=== PATIENT | female | born 1985 | race Caucasian/White ===

== ENCOUNTER 2024-09-12 19:12 | Emergency (ER) | payer BC, SELFPAY ==
[2024-09-12 19:12] VITALS: BP 157/109; PULSE 81; RESP 16; TEMP 36.8; O2SAT 99; BMI 39.2
--- NOTE | 2024-09-12 21:32 | CT_ITS ---
PROCEDURE: ABDOMEN/PELVIS WITHOUT CONT REASON FOR EXAM: Distention. Pain. TECHNIQUE: Abdomen and pelvis CT without intravenous contrast. COMPARISON: None. FINDINGS: Noncontrast technique limits evaluation of the abdominal and pelvic viscera. Lung bases are clear. The nonenhanced liver, spleen, pancreas, biliary system, and adrenal glands are unremarkable within the limits of a noncontrast exam. Gallbladder is surgically absent. Abdominal aorta demonstrates a normal caliber. No renal or ureteral stones are present bilaterally. No hydronephrosis or hydroureter is identified bilaterally. Urinary bladder is underdistended. No colonic obstruction or pericolonic inflammatory changes are present. Appendix is surgically absent. Small bowel demonstrates a normal caliber. There is hernia mesh material along the umbilical region. Uterus is surgically absent. There is a left ovarian cyst measuring 3.4 cm. No free air or free fluid is identified. Evaluation of the osseous structures demonstrates no acute findings. CT/Abdomen/Pelvis without Cont IMPRESSION: 1. No acute inflammatory changes, obstructive uropathy, free air, or free fluid . 2. Postsurgical changes as above. 3. Left ovarian cyst measuring 3.4 cm. One or more dose reduction techniques were used (e.g., Automated exposure contr ol, adjustment of the mA and/or kV according to patient size, use of iterative reconstruction technique). Reading Location: [facility]
--- NOTE | 2024-09-12 21:34 | ED.VIS.GI ---
HPI HPI - GI History of Present Illness Chief Complaint: Abd Pain Informant: patient Narrative Narrative: Worsening left side abdominal pain since yesterday. Nausea without vomiting. Had bowel movement early this morning diarrhea. Bloating. Partial hysterectomy in the past. No urinary symptoms. No fevers reports chills. Reports feels like I am . No history of bowel obstructions. No history of kidney stones. Pain has been constant. Prior similar symptoms: No PFSH PFSH Home Medications ?Medication ?Instructions ?Recorded ?Last Taken ?Type ondansetron 4 mg disintegrating 4 mg PO Q8H PRN PRN Nausea #10 tabs 09/12/24 Unknown Rx tablet Allergy/AdvReac Type Severity Reaction Status Date / Time No Known Allergies Allergy Verified 09/12/24 19:14 Social History Smoking Status: Current every day smoker tobacco type: cigarettes ROS ROS ED Constitutional Constitutional ED: Reports chills; Denies fever(s) or sweats ENT ENT ED: Denies sore throat Cardiovascular Cardiovascular: Denies chest pain, leg edema, palpitations or racing heartbeat Respiratory/Chest Respiratory/Chest: Denies cough, dyspnea or dyspnea on exertion Gastrointestinal Gastrointestinal: Reports abdominal pain and nausea; Denies diarrhea or vomiting Genitourinary Genitourinary ED: Denies dysuria, hematuria or urinary frequency Musculoskeletal Musculoskeletal: Denies back pain, extremity pain or neck pain Integumentary Denies rash or wounds Neurologic Neurologic: Denies headache(s), paresthesias or weakness EXAM Physical Exam Const Vital Signs: 09/12/24 19:12 09/12/24 22:29 09/12/24 23:08 Temperature 98.2 F 97.8 F Temperature Source Oral Pulse Rate 81 67 69 Respiratory Rate 16 20 H Blood Pressure 157/109 H 167/95 H 136/78 H Blood Pressure Mean 125 119 97 Pulse Ox 99 97 99 Oxygen Delivery Method Room Air Room Air Positive well nourished and well developed General Appearance ED: well developed and NAD HEENT Reports moist mucous membranes normocephalic and atraumatic Eyes General Eye ED: Yes normal appearance of both eyes Neck full ROM Chest Wall Chest: Negative for tenderness Resp normal respiratory effort and normal air movement Effort and Inspection: symmetric chest movement; Negative for respiratory distress Cardio regular rate, regular rhythm and no murmurs Peripheral Pulses: pulses 2+ throughout GI GI Narrative: Tender palpation left abdomen. Negative Baires's or McBurney's. Palpation: Negative for guarding or rebound tenderness present Extremity normal to inspection General Extremety ED: Negative for edema or tenderness General Extremity: Negative for edema Neuro oriented x3 and no sensory deficits noted Sensorium / Orientation: awake and alert Skin no rashes or lesions noted and no wounds MDM MDM MDM Narrative Medical decision making narrative: Interventions / MDM: Differential diagnosis: Abdominal pain, left ovarian cyst Diagnosis considered but do not suspect: Kidney stone, colitis however CT negative. My EKG interpretation: N/A Imaging independently reviewed and interpreted by myself: CT abdomen pelvis: External documents reviewed: N/A Test considered but not ordered:N/A ED course: Left abdominal tenderness since yesterday. Abdominal labs ordered, fluids Zofran morphine. CT abdomen pelvis for further evaluation. 2215: Per nursing patient had redness upper arm after morphine was given. There was a small hive proximal to the IV. No lip or tongue swelling. She is given Benadryl. Her pain was improving. Her CT was performed. Urine mild occult blood. No infection. White count 12.6 hemoglobin 13.8. 2305: Lipase liver enzymes renal function normal. CT scan results no kidney stones no colitis, however notes a 3.4 cm left ovarian cyst. This is likely cause of her symptoms. No current pain. Lower suspicion for torsion. Discussed results with the patient, discussed worsening sudden pain to return to the ED for emergent ultrasounds. She is given follow-up with gynecology that is on-call. She has Motrin at home. Prescription for Zofran to her pharmacy. All questions were answered. Re-evaluation: stable Disposition discussed with patient/family/significant other: Patient Case discussed with consulting clinician: N/A This note was generated with Docin dictation software. It may contain incorrect words, spelling, and punctuation that were not noted in checking the note before signing. Lab Data Attestation: I reviewed the patient's lab results. Labs: Laboratory Results - last 24 hr 09/12/24 22:07 WBC 12.6 H RBC 4.42 Hgb 13.8 Hct 41.4 MCV 93.7 MCH 31.2 MCHC 33.3 RDW Std Deviation 47.4 H RDW Coeff of Dennis 13.7 Plt Count 276 MPV 10.3 Immature Gran % (Auto) 0.400 Neut % (Auto) 60.5 Lymph % (Auto) 31.6 [place] % (Auto) 5.6 Eos % (Auto) 1.3 Baso % (Auto) 0.6 Absolute Neuts (auto) 7.6 Absolute Lymphs (auto) 3.98 Nucleated RBC % 0 Sodium 135 L Potassium 3.5 Chloride 105 Carbon Dioxide 21.0 Anion Gap 10 BUN 7 Creatinine 0.72 Estim Creat Clear Calc 122.14 Est GFR (MDRD) Af Amer 116 Est GFR (MDRD) Non-Af 96 BUN/Creatinine Ratio 9.7 L Glucose 83 Calcium 9.5 Total Bilirubin 0.50 AST 25 ALT 27 Alkaline Phosphatase 61 Total Protein 7.7 Albumin 3.8 Globulin 3.9 Albumin/Globulin Ratio 1.0 Lipase 20 Urine Color Yellow Urine Clarity Clear Urine pH 6.0 Ur Specific [place] 1.020 Urine Protein 15 H Urine Glucose (UA) Normal Urine Ketones Negative Urine Occult Blood 10 H Urine Nitrite Negative Urine Bilirubin Negative Urine Urobilinogen Normal Ur Leukocyte Esterase Negative Urine RBC 0-5 SEEN Urine WBC 0-5 SEEN Ur Squamous Epith Cells 0-5 SEEN Urine Bacteria 1+ Urine Mucus 1+ Radiography Diagnostic Testing: Clinical Impression(s) from Imaging Studies Abdomen/Pelvis CT 09/12/24 21:32 IMPRESSION: 1. No acute inflammatory changes, obstructive uropathy, free air, or free fluid. 2. Postsurgical changes as above. 3. Left ovarian cyst measuring 3.4 cm. One or more dose reduction techniques were used (e.g., Automated exposure control, adjustment of the mA and/or kV according to patient size, use of iterative reconstruction technique). Reading Location: [facility] Discharge Plan Triage Chief Complaint: Abd Pain ED Provider: Jadiel Mejia Dx/Rx/DC Orders Clinical Impression: Abdominal pain, Cyst of left ovary Instructions: Abdominal Pain, ED Ovarian Cyst Prescriptions: New ondansetron 4 mg tablet,disintegrating 4 mg PO Q8H PRN PRN (Reason: Nausea) Qty: 10 0RF Primary Care Provider: Care Physician,No Primary Referrals: Eneida Spencer MD [Med Staff - Active Staff] - 1-2 Weeks NOT,DEFINED [Non-Staff] - Activity Restrictions/Additional Instructions: Abdominal labs normal. CT scan abdomen pelvis no kidney stones no colitis. You have a 3.4 cm left ovarian cyst that was noted. Use your ibuprofen every 6 hours as needed. Use Zofran as needed for nausea. If you develop sudden worsening pain again down in the pelvis, return to the ED for reevaluation, otherwise follow-up with gynecology. Print Language: Senegalese Disposition Disposition: Home, Self Care Discharge Date/Time: 09/12/24 23:18
[2024-09-12] MEDS: Morphine 4 MG/ML Syringe IV (22:02)
[2024-09-12] MEDS: Ondansetron 4 MG/2 ML Vial IV (22:02)
[2024-09-12] MEDS: 0.9% Normal Saline (1000mL) 1,000 ML 1000 ML IV (22:02)
[2024-09-12 22:14] LABS: Absolute Lymphocyte Count 3.98 X10^3/uL (0.83-4.51); Absolute Neutrophil Count 7.6 X10^3/uL (2.0-7.7); Basophil# 0.08 X10^3/uL; Basophil% 0.6 % (0-1); Eosinophil# 0.16 X10^3/uL; Eosinophils% 1.3 % (0-5); Hematocrit 41.4 % (37-47); Hemoglobin 13.8 g/dL (12.0-15.0); Lymphocyte # 3.98 X10^3/ul (0.83-4.51); Lymphocyte % 31.6 % (19-41); Mean Corp Hgb Conc 33.3 g/dL (32-36); Mean Corpuscular Hgb 31.2 pg (27.0-32.0); Mean Corpuscular Volume 93.7 fL (81-99); Mean Platelet Vol. 10.3 fl (6.2-12.0); Monocyte# 0.71 X10^3/uL; Monocyte% 5.6 % (0-10); NRBC Flagged by Analyzer 0 % (0-5); Neutrophil # 7.62 X10^3/uL (2.7-7.7); Neutrophil % 60.5 % (47-70); Platelet Count 276 K/mm3 (150-450); RBC Distribution Width CV 13.7 % (11.6-14.6); RBC Distribution Width SD 47.4 fl (35.1-43.9); Red Blood Count 4.42 M/mm3 (4.2-5.4); White Blood Count 12.6 K/mm3 (4.4-11.0)
[2024-09-12 22:19] LABS: Color, Urine Yellow (Yellow); Glucose, Dipstick Normal (Normal); Ketone-Dipstick Negative (Negative); Leukocyte Esterase-Dipstick Negative /ul (Negative); Nitrite-Dipstick Negative (Negative); Occult Blood-Urine 10 /ul (Negative); Protein-Dipstick 15 mg/dl (Negative); Urine Bilirubin Dipstick Negative (Negative); Urine Clarity Clear (Clear); Urine Urobilinogen Normal (Normal)
[2024-09-12] MEDS: DiphenhydrAMINE 50 MG/ML Syringe 25 MG IV (22:24)
[2024-09-12 22:29] VITALS: BP 167/95; PULSE 67; O2SAT 97
[2024-09-12 22:29] LABS: Bacteria 1+ /hpf (None Seen); Mucous, Urine 1+ /hpf (<or=2+); Red Blood Cells-Urine 0-5 SEEN /hpf (0-5); Squamous Epithelial Cells - UA 0-5 SEEN /hpf (5-10); White Blood Cells 0-5 SEEN /hpf (0-5)
--- NOTE | 2024-09-12 22:30 | ED.RN ---
iv technician alerted this RN to possible hives/ allergic reaction to pt. arm. Pt. was found to have redness that extended from her PIV in her forearm up to the right side of her neck. pt. not in any distress, states the area is not painful or itchy. Dr Mejia notified and benadryl ordered. pt. placed on monitor technician.
[2024-09-12 22:37] LABS: AST(SGOT) 25 U/L (15-37); Alanine Aminotransfer ALT/SGPT 27 U/L (13-56); Albumin, Serum 3.8 g/dL (3.2-5.0); Alkaline Phosphatase 61 U/L (45-117); Anion Gap 10 (5-15); BUN 7 mg/dL (7-18); BUN/Creat Ratio 9.7 RATIO (10-20); Calcium,Total 9.5 mg/dL (8.5-10.1); Chloride 105 mmol/L (98-107); Creatinine, Serum 0.72 mg/dL (0.55-1.02); EST Glomerular Filtration Rate 96 mL/min (>60); Est Glom Filt Rate - Afr Amer 116 mL/min (>60); Estimated Creatinine Clearance 122.14 ml/min; Globulin 3.9 g/dL (2.2-4.2); Glucose 83 mg/dL (74-106); Lipase 20 U/L (13-75); Potassium 3.5 mmol/L (3.5-5.1); Protein, Total 7.7 g/dL (6.4-8.2); Sodium Level 135 mmol/L (136-145)
[2024-09-12 23:08] VITALS: BP 136/78; PULSE 69; RESP 20; TEMP 36.6; O2SAT 99
== END 2024-09-12 23:18 | disposition home or self-care (01) ==
PROVIDERS: Emergency Provider Emergency Medicine; Visit Provider Emergency Medicine
DX: N83.202 Unspecified ovarian cyst, left side (principal); R19.7 Diarrhea, unspecified; R14.0 Abdominal distension (gaseous); R10.9 Unspecified abdominal pain; F17.210 Nicotine dependence, cigarettes, uncomplicated; Z90.710 Acquired absence of both cervix and uterus
CPT/HCPCS: 74176; 80053; 81001; 83690; 85025; 96361; 96374; 96375; 99283; J2405

== ENCOUNTER → 2024-09-23 | Outpatient (CLI) | payer BC, SELFPAY ==
[2024-09-23 12:41] LABS: Absolute Lymphocyte Count 2.67 X10^3/uL (0.83-4.51); Absolute Neutrophil Count 3.9 X10^3/uL (2.0-7.7); Basophil# 0.04 X10^3/uL; Basophil% 0.6 % (0-1); Eosinophil# 0.17 X10^3/uL; Eosinophils% 2.4 % (0-5); Hematocrit 41.5 % (37-47); Hemoglobin 13.3 g/dL (12.0-15.0); Lymphocyte # 2.67 X10^3/ul (0.83-4.51); Lymphocyte % 36.9 % (19-41); Mean Corpuscular Hgb 30.3 pg (27.0-32.0); Mean Corpuscular Volume 94.5 fL (81-99); Monocyte# 0.46 X10^3/uL; Monocyte% 6.4 % (0-10); NRBC Flagged by Analyzer 0 % (0-5); Neutrophil # 3.86 X10^3/uL (2.7-7.7); Neutrophil % 53.3 % (47-70); Platelet Count 322 K/mm3 (150-450); RBC Distribution Width CV 13.9 % (11.6-14.6); RBC Distribution Width SD 48.8 fl (35.1-43.9); Red Blood Count 4.39 M/mm3 (4.2-5.4); White Blood Count 7.2 K/mm3 (4.4-11.0)
[2024-09-23 13:16] LABS: Vitamin D,25 Hydroxy 7.4 ng/mL
[2024-09-23 13:36] LABS: ALB/GLOB Ratio 1.1 RATIO (0.9-2.4); AST(SGOT) 18 U/L (15-37); Alanine Aminotransfer ALT/SGPT 28 U/L (13-56); Albumin, Serum 3.7 g/dL (3.2-5.0); Alkaline Phosphatase 66 U/L (45-117); Anion Gap 9 (5-15); BUN 8 mg/dL (7-18); BUN/Creat Ratio 12.5 RATIO (10-20); Calcium,Total 9.1 mg/dL (8.5-10.1); Chloride 109 mmol/L (98-107); Cholesterol 183 mg/dL (200); Creatinine, Serum 0.64 mg/dL (0.55-1.02); EST Glomerular Filtration Rate 112 mL/min (>60); Est Glom Filt Rate - Afr Amer 135 mL/min (>60); Globulin 3.5 g/dL (2.2-4.2); Glucose 91 mg/dL (74-106); High Density Lipoprotein 59 mg/dL; Potassium 3.6 mmol/L (3.5-5.1); Protein, Total 7.2 g/dL (6.4-8.2); Sodium Level 139 mmol/L (136-145); Thyroid Stim Hormone (TSH) 0.923 uIU/mL (0.358-3.740); Triglycerides 142 mg/dL; Very Low Density Lipoprotein 28 mg/dL (5-40)
== END | disposition home or self-care (01) ==
LOC: MTLAB 09:54
PROVIDERS: PCP Family Medicine; Referring Provider Family Medicine; Visit Provider Family Medicine
DX: R53.83 Other fatigue (principal); Z13.220 Encounter for screening for lipoid disorders; F41.1 Generalized anxiety disorder; Z13.1 Encounter for screening for diabetes mellitus
CPT/HCPCS: 36415; 80053; 80061; 82306; 84443; 85025

== ENCOUNTER 2024-12-15 07:53 | Day surgery (SDC) | payer BC, SELFPAY ==
[2024-12-15] VITALS (10 sets, daily range): BP systolic 118–154; BP diastolic 66–98; PULSE 64–85; RESP 16–20; TEMP 36.3–36.6; O2SAT 93–98; BMI 40.1
[2024-12-15] MEDS: Lactated Ringers 1,000 ML 15 ML IV (08:35)
--- NOTE | 2024-12-15 09:07 | HP.PCM_ITS ---
History and Physical Date of Admission: 12/15/24 Date of Service: 12/02/24 MR#: [id number] Acct: [id number] Name: LUPE JIMENEZ Rep #: [id number] : 1985 Provider: Dr. Samina Dawson MD Age/Sex: 39/F Location: [facility] Status: Signed Intake Vital Signs 09/12/2518:12 12/02/2513:16 Height 5 ft 3 in 5 ft 3 in Weight: 223 lb 8 oz BMI 39.6 BP 142/91 H Blood Pressure Location Rt brachial Position Sitting Respiration 18 Pulse 74 Pulse Source Monitor Temp 97.8 F Temp Source Temporal Pulse Oximetry (%) 98 Oxygen Delivery Method room air Intake Visit Reasons: VENTRAL HERNIA Chief Complaint: Incisional hernia Case Folder Required: No Accompanied by: Unknown Is patient in pain?: No Allergies Opioids - Morphine Analogues Allergy (Intermediate, Verified 12/02/24 14:18) Hives Have you fallen in the past year?: No PFSH Medical History (Updated 12/03/24 @ 08:[address] Samina Dawson MD) GERD (gastroesophageal reflux disease) Anxiety and depression Surgical History (Updated 12/03/24 @ 08:[address] Samina Dawson MD) History of surgery on wrist History of dilatation and curettage History of hysterectomy History of umbilical hernia repair History of laparoscopic cholecystectomy Family History Grandmother Colon cancer Diabetes Heart disease Hypertension Kidney disease Social History (Updated 12/02/24 @ 14:16 by Alexandrea Mcwilliams) Smoking Status: Current every day smoker tobacco type: cigarettes alcohol intake: current alcohol intake frequency: a few times a month substance use type: does not use HPI HPI HPI: 39-year-old female presents due to epigastric hernia. Patient states that she had a cholecystectomy she thought in 2009 looks like per records it was 2008. Patient also underwent an incisional umbilical ventral hernia repair with mesh 6 months after the initial surgery. Patient did have a recent CT abdomen pelvis in the ER due to abdominal pain?09/12/2024. Patient states she is at the epigastric hernia for about a year but about 3 weeks ago did have a coughing fit which now this area is more tender and sore. Patient does currently smoke a half a pack a day. ROS General General: Yes fatigue; No weight change, appetite, colon cancer or breast cancer HEENT HEENT: No difficulty swallowing, eye injury, eye surgery, swollen glands or hoarseness Endo Endocrine: No thyroid disease, diabetes mellitus, thyroid cancer, Hair loss, heat intolerance or cold intolerance Skin Skin: No rash or changing moles Musc Musculoskeletal: No back problems, arthritis, rheumatoid arthritis, gout or joint pain Cardio Cardiovascular: No murmur, pacemaker, heart disease, atrial fibrillation, high blood pressure, heart attack, heart stent, palpitations, shortness of breath with exertion or chest pain Psych Psychiatric: Yes depression and anxiety; No hearing voices Resp Respiratory: No shortness of breath, No sleep apnea, No cough, No COPD, No asthma, No emphysema and No wheezing Gastro Gastrointestinal: No abdominal pain, No nausea or vomiting, No diarrhea, No constipation, No blood in stool, Yes acid reflux, No hemorrhoids, No ulcers, No gallbladder problem and No black,tarry stools Miguel Hematologic: No blood thinners, No blood disorders, No bleeding, No anemia and No blood clots Neuro Neurologic: No numbness and No tingling Exam Const General: cooperative, healthy appearing, comfortable and no acute distress HENMT Head: normocephalic and atraumatic Neck Neck: supple Resp Effort & Inspection: normal respiratory effort Cardio Rate: regular rate GI Inspection: non-distended Palpation: soft, hernia other (Epigastric incisional hernia-reducible, recurrent incisional hernia at umbilicus-reducible) and nontender Skin General: no rashes or lesions noted Neuro General: CN's II-XI intact bilaterally Extrem General: normal to inspection Psych Mental Status: mental status grossly normal Attitude: cooperative Assessment and Plan Assessment and Plan (1) Recurrent incisional hernia: Status: Acute Comment: At umbilicus status post mesh repair in 2008 (2) Incisional hernia: Status: Acute Comment: Epigastric Medications: Discontinued ondansetron Discontinued Reason: Order Completed 4 mg PO Q8H PRN PRN 10 tabs 0RF Nausea Plan Reviewed CT abdomen pelvis with patient as on my read there was still recurrent incisional hernia at umbilicus which was also appreciated clinically on exam. Plan to do robotic recurrent incisional and incisional hernia repair with mesh, possible removal of previous mesh. Reviewed the procedure with the patient including the risks, including but not limited to infection, bleeding, injury to the small bowel, and recurrence. All questions were answered. Did encourage smoking cessation- pt currently declined. Did let patient know that smoking with her high risk for wound infection and if the mesh were to become infected it would need to be removed. Samina Dawson M.D. Pager: [phone] [facility] [address] [place] [address], [address] [place] [address] Office: [phone] Coding Level of Care Code Off vis,new,level 3 Diagnoses Recurrent incisional hernia K43.2 Incisional hernia K43.2 Clinical Quality Measures Falls Risk Screening/Assistive Devices Have you fallen in the past year?: No 12/03/24 0901 <Electronically signed by Samina Dawson MD> Date Samina Dawson MD
--- NOTE | 2024-12-15 09:11 | PCM.PRE.AN2 ---
ASA Classification* ASA Classification ASA Classification: 2 Assessment & Plan Anesthesia* Anesthesia Assessment Anesthesia Assessment: Discussed sedation and/or anesthesia options, risks, benefits, and alternatives with patient/parents/legal guardian/POA. Questions invited. The patient/parents/legal guardian/POA seems to understand and agrees to proceed with anesthesia plan. Reviewed the physical assessment, medical history, allergy history and patient home medications list prior to surgery/procedure/anesthetic and documented any changes. Performed airway and anesthesia risk assessments. Anesthesia Type Anesthesia Type: General History Source History Obtained from:: Patient and Chart Anesthesia Focused Assessment* Temperature: 97.3 F Pulse Rate: 64 Blood Pressure: 130/66 Respiratory Rate: 16 Pulse Ox: 98 Airway Assessment Mouth opens: >3 cm Mallampati Score: III Teeth Condition: Chipped/Broken (Patient has multiple chipped and broken teeth.) Neck Range of motion (ROM): Full ROM Focused Labs Anesthesia Preop lab: CBC WBC 7.2 K/mm3 (4.4-11.0) 09/23/24 09:56 09/23/24 RBC 4.39 M/mm3 (4.2-5.4) 09/23/24 09:56 09/23/24 Hgb 13.3 g/dL (12.0-15.0) 09/23/24 09:56 09/23/24 Hct 41.5 % (37-47) 09/23/24 09:56 09/23/24 Plt Count 322 K/mm3 (150-450) 09/23/24 09:56 09/23/24 CHEMISTRY Potassium 3.6 mmol/L (3.5-5.1) 09/23/24 09:56 09/23/24 Sodium 139 mmol/L (136-145) 09/23/24 09:56 09/23/24 BUN 8 mg/dL (7-18) 09/23/24 09:56 09/23/24 Creatinine 0.64 mg/dL (0.55-1.02) 09/23/24 09:56 09/23/24 Glucose 91 mg/dL (74-106) 09/23/24 09:56 09/23/24 TSH 0.923 uIU/mL (0.358-3.740) 09/23/24 09:56 09/23/24 COAG Pre-Assessment Diagnosis/Proposed Procedure Planned Operative Procedure(s): Lap Robotic Ventral Hernia incisional and recurrent incisional hernia repair and poss removal and poss placement of mesh Anesthesia History Anesthesia History - research executive: Anesthesia History - research executive Hx Hospitalization No 12/07/24 14:11 Any Problems With Anesthesia No 12/07/24 14:11 Cholinesterase deficiency No 12/07/24 14:11 You/Your Family Experience No 12/07/24 14:11 fever (hyperthermia) with Relationship Recent Exposure to Contagious No 12/15/24 08:22 Disease Does patient have nerve No 12/07/24 14:11 stimulator Patient instructed to have device shut off --Does patient have Pacemaker No 12/15/24 08:24 or ICD? When Was Last Pacemaker Check QUESTION #4 FULL TEXT: You/Your Family Experience fever (hyperthermia) with Anesthesia Last Oral Intake Last Oral intake: Last Oral Intake NPO since 23:30 12/15/24 08:24 Meds taken in AM with sips of water? Meds patient instructed to take am of surgery PONV PONV - research executive: PONV - research executive Female Yes 12/07/24 14:11 HX of Motion Sickness No 12/07/24 14:11 HX of N/V After Surgery No 12/07/24 14:11 Non-Smoker Yes 12/07/24 14:11 Duration of Surgery greater Yes 12/07/24 14:11 than 60 minutes Number of Risk Factors 3 12/07/24 14:11 PONV Score Moderate Risk 12/07/24 14:11 Height & Weight Height & Weight: Anesthesia: Height & Weight Height 5 ft 2 in 12/15/24 08:24 Weight: 99.518 kg 12/15/24 08:24 Body Mass Index (BMI) 40.1 12/15/24 08:24 Respiratory Assessment Respiratory Assessment - research executive: Respiratory Tract Infection Hx - research executive Hx Respiratory Tract Infection No 12/07/24 14:11 STOP Sleep Apnea STOP Sleep Apnea - research executive: STOP Sleep Apnea - research executive Hx Hypertension No 12/07/24 14:11 Hx Sleep Apnea No 12/07/24 14:11 CPAP BIPAP Do you snore loudly (louder No 12/07/24 14:11 than talking or can be heard Do you often feel tired/ No 12/07/24 14:11 fatigued/ sleepy during daytime? Has anyone observed you stop No 12/07/24 14:11 breathing during sleep? STOP Results Negative 12/07/24 14:11 QUESTION #5 FULL TEXT : Do you snore loudly (louder than talking or can be heard through closed doors)? Tobacco Use History Tobacco Use History - research executive: Tobacco Use History - research executive Tobacco Use Smoking Status Current every day smoker 12/07/24 14:11 Hx Tobacco Use Yes 12/07/24 14:11 Years Smoking Packs Smoked per Day Smoking Cessation Date was within the last 15 years Hx Smoking Cessation Date Hx Smoking Cessation Counseling Any additional information?: Yes Smoking Status: Current every day smoker (Patient smoked today.) Hematologic Medial History Hematologic Hx - research executive: Hematologic Medical Hx - cat and dog bather Hx of Blood Transfusion No 12/07/24 14:11 Hx of Transfusion in last 3 No 12/07/24 14:11 Months Date of Last Transfusion (if within last 3 months) Ever experience any problems No 12/07/24 14:11 with transfusion(s)? Specify any problems Hx of Preganancy in last 3 No 12/07/24 14:11 Months Nurse Filling Out Transfusion VCHRISTIN 12/07/24 14:11 & Questions: Date: 12/07/24 12/07/24 14:11 Time: 14:12 12/07/24 14:11 Patient unable to answer at this time (ie. confused, unrespo /Reproduction History /Reproductive History - research executive: /Reproductive Hx- research executive Hx Now No 12/07/24 14:11 Gestational Age (in weeks): EDC: Hx Hx Para Hx Section SAB No 12/07/24 14:11 Active Medications Active Medications: Current Medications Generic Name Dose Route Start Last Admin Trade Name Freq PRN Reason Stop Dose Admin Lactated Ringer's 1,000 mls @ 15 mls/hr 12/15/24 08:15 12/15/24 08:35 IV 15 mls/hr .Q48H ROSALIO Administration PFSH Medical History Wears glasses Depression Anxiety Alcohol use Gastric reflux Smoker GERD (gastroesophageal reflux disease) Anxiety and depression Home Medications ?Medication ?Instructions ?Recorded ?Last Taken ?Type cholecalciferol (vitamin D3) 1,250 1,250 mcg PO QWEEK 12/02/24 12/09/24 History mcg (50,000 unit) capsule dextroamphetamine-amphetamine ER 1 cap PO DAILY 12/07/24 Unknown History 20 mg 24hr capsule,extend release dextroamphetamine-amphetamine 30 30 mg PO DAILY 12/15/24 12/14/24 History mg tablet (Adderall) Allergy/AdvReac Type Severity Reaction Status Date / Time Opioids - Morphine Analogues Allergy Intermediate Hives Verified 12/15/24 08:20 Family History Grandmother Colon cancer Diabetes Heart disease Hypertension Kidney disease Surgical History History of surgery on wrist History of dilatation and curettage History of hysterectomy History of umbilical hernia repair History of laparoscopic cholecystectomy Social History Smoking Status: Current every day smoker tobacco type: cigarettes alcohol intake: current alcohol intake frequency: a few times a month substance use type: does not use Review of Systems (Anesthesia) ROS Narrative System reviewed and no additional complaints, except as documented.
[2024-12-15] MEDS: Cefazolin 2 GM in 0.9% Normal Saline (100mL Bag) 100 ML IV (10:05)
[2024-12-15] MEDS: Bupivacaine Mpf 0.5% 30 ML VIAL (11:47)
--- NOTE | 2024-12-15 12:00 | OP.PCM_ITS ---
Operative Report (Standard) Operative Information Date of Procedure: 12/15/24 Pre-Operative Diagnosis: Incisional and recurrent incisional ventral hernias Post-Operative Diagnosis: Same Surgery/Procedure Performed: Robotic transabdominal preperitoneal incisional ventral hernia repair with mesh, primary repair of previous hernia with mesh. clinical training specialist: Yes Hammersmith Helper: Reagan Watkins Tasks completed by farm assistant: Opening & closing Type of Anesthesia: General/Supplemental RN Documented Start/Stop Times: Operation Date: 12/15/24 10:00 Case Time Into Pre-Op 12/15/24 08:01 Out of Pre-Op 12/15/24 09:51 Anesthesia Start 12/15/24 09:54 Into Room 12/15/24 09:54 Procedure Start 12/15/24 10:19 Procedure End 12/15/24 12:03 Anesthesia End 12/15/24 12:07 Out of Room 12/15/24 12:07 Into Recovery 12/15/24 12:08 Out of Recovery 12/15/24 13:04 Into Phase II Recovery 12/15/24 13:05 Out of Phase II 12/15/24 14:10 Procedure Start Time: 10:19 Procedure Stop Time: 12:03 Select all DRAINS/GRAFTS/IMPLANTS that apply: Implanted device Implanted device details: ProGrip mesh cut to 7 x 7 cm Lot [id number] Special Medications: Ancef 2 g IV x 1 Estimated Blood Loss: 10 cc Specimen collected: No Description of surgery: Indications: this is a 39 year-old female who developed abdominal pain and bulge at the epigastric site. Was found to have incisional hernia and also recurrent incisional hernia at the umbilicus from her previous cholecystectomy. Robotic incisional and recurrent incisional hernia repairs were elected Description procedure: The patient was placed on operating table in supine position. Timeout was completed verifying correct patient, procedure, site, positioning, special, prior to beginning procedure. General anesthesia was induced. Patient's arms were tucked and padded appropriately. Abdomen was prepped draped in usual sterile fashion. Visiport was used to make the incision at Whitaker's point in the left upper quadrant. Entry into the abdomen was confirmed visually. Laparoscope was placed. Verifying no injury during initial trocar placement. Additional 8 mm trocars were placed in the mid lateral left abdomen in the left lower quadrant under direct visualization. The epigastric hernia site peritoneum was dissected using scissors/electrocautery. Hernia contents were reduced. Hemostasis was achieved with electrocautery on the ProGrasp at the area of the falciform. The hernia defect was closed using 1 strata fix 6 suture in a running fashion. The P roGrip mesh was cut to 7 x 7 cm, hernia defect measured about 2 cm. The mesh was rolled into a cylinder and placed through the trocar and centered over the hernia defect. This was unrolled to cover the defect. The peritoneum was sutured using 2-0 V-Loc 12 running suture. Mesh was completely covered. Attention turned to the umbilical site area of previous mesh. The right edge of the mesh had folded up slightly the abdominal adipose tissue was gently removed with traction. The majority of the mesh was well incorporated except for that one edge. The mesh edge on the right to the abdominal wall using 1 strata fix running suture. Secondary trochars removed under direct vision. No bleeding was noted the trocar sites. The laparoscope was withdrawn and umbilical trocar removed. The abdomen was allowed to collapse. The skin was closed with sutures of 4-0 Monocryl and Steri-Strips. The patient was extubated. The patient tolerated procedure well and was taken to the postanesthesia care unit in stable condition. Surgical Findings: See operative report Complications Complications: No
--- NOTE | 2024-12-15 12:00 | EX.PCM.DISCH ---
Discharge Instructions Diet Discharge Diet: Light diet - advance as tolerated Activity Discharge Activity: May Not Drive (while taking narcotic pain medications.) May shower in (days): 1 Lifting Restrictions: no lifting >20 lbs x 2 wks, no strenuous exercise for 4 wks Dressing / Incision Call your doctor if your incision/area has: Continuous Slow Oozing, Sudden Increased Bleeding, Increased Pain/ Swelling, Increased Redness, Foul Smelling Discharge and Swelling at the incision site Call your doctor if you observe: Fever of 101 or Higher Remove Dressing in: 2 days (No incision at the upper abdomen however pressure dressing placed to help prevent seroma-keep for 4 days, others can be removed after 2) Cleanse incision/area with: Soap & Water Additional Dressing/Incision Instructions:: Steri-Strips will fall off in 7 to 10 days, if they do not fall off okay to remove after 10 days. Follow Up Care Please Follow Up With: Samina Dawson MD When: Call the office for a follow-up appointment 2 weeks; after 5 PM and on the weekends call [phone] with any concerns. Test Results: Test results from this visit will be discussed in further detail at your follow-up appointment, if applicable. Discharge Plan Admission Attending Provider: Samina Dawson Primary Care Provider: Oliver Mcnamara Instructions Additional Instructions / Restrictions: Okay to take ibuprofen 400-600 mg PO q6hr PRN and Tylenol 650 to 1000 mg p.o. every 6 hours as needed along with the oxycodone. Take all pain meds with food. Oxycodone can cause constipation recommend taking daily stool softener (i.e. Colace/docusate) while taking the pain meds. Recommend starting some MiraLAX in 1 to 2 days if no bowel movement. If still no bowel movement the following day recommend taking additional MiraLAX versus magnesium citrate half the bottle and waiting 4-6 hours if still no results take the other half the bottle. Print Language: Armenian Discharge Orders/Prescriptions Prescriptions: New oxycodone 5 mg capsule 5 mg PO Q6H PRN (Reason: pain) 3 Days Qty: 10 0RF Continued cholecalciferol (vitamin D3) 1,250 mcg (50,000 unit) capsule 1,250 mcg PO QWEEK dextroamphetamine-amphetamine 20 mg capsule,extended release 24hr 1 cap PO DAILY dextroamphetamine-amphetamine [Adderall] 30 mg tablet 30 mg PO DAILY Referrals / Follow Up: Oliver Mcnamara MD [Primary Care Provider] - Disposition Disposition (needs filled in before D/C Order can be placed): Home, Self Care
--- NOTE | 2024-12-15 12:14 | PCM.POST.ANE ---
Anesthesia: Postop Eval I Current Vital Signs Temperature: 97.8 F Pulse Rate: 85 Blood Pressure: 154/87 Respiratory Rate: 20 Pulse Ox: 98 Oxygen Delivery Method: Room Air Assessment Airway patent: Yes Spontaneous unlabored respirations: Yes Mental status: Awake and Calm nausea: No Vomiting: No Anesthesia Complication: No Fluid Hydration Crystalloid volume administer (ml): 1,100 Total IV fluid infused: 1,100 Progress Note Anesthesia document: Postop Eval 1 completed: Yes
[2024-12-15] MEDS: Ketorolac 30 MG/ML Syringe IV (12:23)
--- NOTE | 2024-12-15 13:14 | POSTOPAN2_ITS ---
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 Spontaneous unlabored Yes 12/15/24 12:15 BLAST [email or web address] [email or web address] respirations Mental status Awake,Calm 12/15/24 12:15 BLAST [email or web address] [email or web address] nausea No 12/15/24 12:15 BLAST [email or web address] Vomiting No 12/15/24 12:15 BLAST HOLE [email or web address] Anesthesia Postop Eval I: Fluid Summary Crystalloid volume administer 1,100 12/15/24 12:15 BLAST [email or web address] (ml) Colloids volume administered ( ml) Blood Product volume administered (ml) Total IV fluid infused 1,100 12/15/24 12:15 BLAST [email or web address] Anesthesia Postop Eval I: Summary Notes Anesthesia Complication No 12/15/24 12:15 BLAST [email or web address] Anesthesia Complication Comment: Post-operative progress note Anesthesia: Postop Eval II Evaluation Mental status: Awake and Calm Pain Level: 0 nausea: No Vomiting: No Complications Anesthesia Complication: No
--- NOTE | 2024-12-15 13:14 | PCM.POSTANE2 ---
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 Spontaneous unlabored Yes 12/15/24 12:15 LASER BEAM COLOR SCANNER [email or web address] respirations Mental status Awake,Calm 12/15/24 12:15 LASER BEAM COLOR SCANNER [email or web address] nausea No 12/15/24 12:15 LASER BEAM COLOR SCANNER [email or web address] Vomiting No 12/15/24 12:15 LASER BEAM COLOR SCANNER [email or web address] Anesthesia Postop Eval I: Fluid Summary Crystalloid volume administer 1,100 12/15/24 12:15 LASER BEAM COLOR SCANNER [email or web address] (ml) Colloids volume administered ( ml) Blood Product volume administered (ml) Total IV fluid infused 1,100 12/15/24 12:15 LASER BEAM COLOR SCANNER [email or web address].[email or web address] Anesthesia Postop Eval I: Summary Notes Anesthesia Complication No 12/15/24 12:15 LASER BEAM COLOR SCANNER [email or web address].[email or web address] Anesthesia Complication Comment: Post-operative progress note Anesthesia: Postop Eval II Evaluation Mental status: Awake and Calm Pain Level: 0 nausea: No Vomiting: No Complications Anesthesia Complication: No
== END 2024-12-15 14:09 | disposition home or self-care (01) ==
LOC: SDC 07:54 → AC 07:57
PROVIDERS: PCP Family Medicine; Referring Provider Family Medicine; Visit Provider Surgery
PROC: (CPT 49613; principal; 2024-12-15 09:40)
DX: K43.2 Incisional hernia without obstruction or gangrene (principal); F17.210 Nicotine dependence, cigarettes, uncomplicated; K21.9 Gastro-esophageal reflux disease without esophagitis; Z90.49 Acquired absence of other specified parts of digestive tract; Z87.19 Personal history of other diseases of the digestive system; Z98.890 Other specified postprocedural states; K42.9 Umbilical hernia without obstruction or gangrene
CPT/HCPCS: 49613; S2900; 00832; C1781; J2405